=== PATIENT | female | born 2000 | race African-American/Black ===

== ENCOUNTER 2022-06-29 12:28 | Emergency (ER) | payer MEDICAID ==
[~2022-06-29] VITALS: Ht 167.6 cm; Wt 52.0 kg
[2022-06-29] MEDS ORDERED: ONDANSETRON 4MG ODT PO ONE (15:15)
[2022-06-29 15:49] LABS: BASOPHILS % 0.9 % (0.0-2.0); EOSINOPHILS % 0.6 % (0.0-5.0); HEMATOCRIT. 36.7 % (36.0-48.0); HEMOGLOBIN. 12.5 g/dL (12.0-16.0); LYMPHOCYTES % 37.8 % (20.0-50.0); MEAN CORPUSCULAR HEMOGLOBIN 32.8 pg (28.0-32.0); MEAN CORPUSCULAR VOLUME 96.2 fL (81.0-99.0); MEAN PLATELET VOLUME 7.8 fl (7.4-10.4); MONOCYTES % 7.5 % (2.0-8.0); NEUTROPHILS % 53.2 % (40.0-76.0); PLATELET 281 x1000/uL (130-400); RED BLOOD CELL COUNT 3.82 mill/uL (4.2-5.4); RED CELL DISTRIBUTION WIDTH 14.7 % (11.6-14.6)
[2022-06-29 16:11] LABS: CHLORIDE 107 mEq/L (98-107)
[2022-06-29 16:29] LABS: CLARITY URINE TURBID (CLEAR); COLOR URINE ORANGE (YELLOW); KETONES URINE 3+ (NEGATIVE); LEUKOCYTE ESTERASE URINE TRACE (NEGATIVE); NITRITE URINE NEGATIVE (NEGATIVE); OCCULT BLOOD URINE 3+ (NEGATIVE); PROTEIN URINE 3+ (NEGATIVE); SPECIFIC GRAVITY URINE 1.038 (1.005-1.030)
[2022-06-29 16:50] LABS: B-HCG QUANTITATIVE 28034 mIU/mL (<3)
[2022-06-29] MEDS ORDERED: CEPH500C2 MT (17:28)
[2022-06-29] MEDS ORDERED: RHO(D) IMMUNE GLOBULIN 300 MCG/SYR IM ONE (17:30)
[2022-06-29 19:19] VITALS: BP 112/82
== END 2022-06-29 19:22 | disposition home or self-care (01) ==
LOC: ER 12:28
DX: O26.891 Other specified pregnancy related conditions, first trimester (principal); O23.11 Infections of bladder in pregnancy, first trimester; O20.0 Threatened abortion; Z3A.01 Less than 8 weeks gestation of pregnancy
CPT/HCPCS: 36415; 76801; 76817; 80053; 81003; 81025; 84702; 85025; 86886; 90384; 96372; 99285; Q0162; J2791

== ENCOUNTER 2024-01-16 00:28 | Emergency (ER) | payer MEDICAID, OTHER ==
[~2024-01-16] VITALS: Ht 167.6 cm; Wt 55.0 kg
[~2024-01-16 00:28] MED LIST: CEPH500C2 MT
[2024-01-16 00:40] VITALS: PULSE 85; O2SAT 100
[2024-01-16 03:45] VITALS: TEMP 98.3
[2024-01-16] MEDS ORDERED: LIDOCAINE 5% PATCH TOP SCH (03:45)
[2024-01-16] MEDS: ACETAMINOPHEN 325MG TABLET PO ONE (03:45)
[2024-01-16 04:24] VITALS: BP 125/88; RESP 18
[2024-01-16] MEDS: LIDOCAINE 5% PATCH TOP NR (04:24)
[2024-01-16] MEDS ORDERED: IBUP-2029 MT (04:24)
[2024-01-16] MEDS ORDERED: BACL-141 MT (04:24)
[2024-01-16] MEDS ORDERED: MED4 MT (04:24)
== END 2024-01-16 04:41 | disposition home or self-care (01) ==
LOC: ER 00:28
DX: M54.50 Low back pain, unspecified (principal); V98.8XXA Other specified transport accidents, initial encounter; Y93.89 Activity, other specified; Y92.89 Other specified places as the place of occurrence of the external cause; Y99.8 Other external cause status
CPT/HCPCS: 99283